=== PATIENT | male | born 1965 | race Caucasian/White ===

== ENCOUNTER 2024-05-18 13:58 | Emergency (ER) | payer OTHER ==
[2024-05-18 14:12] VITALS: BP 126/69; PULSE 98; RESP 18; TEMP 97.5; BMI 25.2
[2024-05-18] MEDS ORDERED: KETOROLAC TROMETHAMINE 30 MG/1 ML VIAL ONE (14:57)
[2024-05-18 15:31] LABS: PH,URINE 7.5 (5.0-8.0); URINE APPEARANCE CLEAR; URINE BILIRUBIN NEGATIVE (NEGATIVE); URINE COLOR YELLOW; URINE GLUCOSE (UA) 2+ (NEGATIVE); URINE KETONE TRACE (NEGATIVE); URINE LEUK ESTERASE NEGATIVE (NEGATIVE); URINE NITRITE NEGATIVE (NEGATIVE); URINE PROTEIN NEGATIVE (NEGATIVE)
[2024-05-18] MEDS ORDERED: ACETAMINOPHEN 500 MG TABLET (FP) ONE (16:25)
[2024-05-18] MEDS: ACETAMINOPHEN 500 MG TABLET (FP) PO ONE (16:28)
== END 2024-05-18 17:41 | disposition home or self-care (01) ==
LOC: JERFT 13:58
DX: R05.9 Cough, unspecified (principal); B34.9 Viral infection, unspecified; R51.9 Headache, unspecified; R50.9 Fever, unspecified; Z20.822 Contact with and (suspected) exposure to COVID-19
CPT/HCPCS: 0241U-QW; 71046-TC-FY; 81003; 82962; 87086; 99284-25